=== PATIENT | male | born 1975 | race Caucasian/White ===

== ENCOUNTER 2017-03-18 18:00 | Inpatient (IN) | payer OTHER ==
--- NOTE | ~2017-03-18 | PA ---
Unit #: [id number] #: [id number] Patient: ANIA GRIGSBY [id number] [facility] [address] [place] [address] [id number] I MR#: [id number] NAME: ANIA GRIGSBY. ROOM: P174 Age: 42 Sex: M Admission Date: 03/18/2017 : 1975 Date of Assessment: 03/18/2017 Attending Physician: Sharri Sotelo M.D. Admitting Physician: Sharri Sotelo M.D. Primary Care Physician: Arina Jaramillo PSYCHIATRIC ASSESSMENT DATE OF SERVICE 03/19/2017. IDENTIFYING DATA Mr. Grigsby is a 42-year-old, , white male, who is a resident of [place], [place] and is known to us from previous encounter, was self-referred to the hospital on a voluntary basis with a blood alcohol level of 0.12. CHIEF COMPLAINT "I started drinking 3 weeks ago." HISTORY OF PRESENT ILLNESS Mr. Grigsby is a 42-year-old white male with a history of alcohol dependence, who self referred himself to the hospital stating that he was seen here previously in November and got out after 6 days and everything was going good and "I spent 2 months being sober and life happened and things stressed me out and I started drinking again 3 weeks ago. I knew it was going to get out of control and escalate. I think current living situation is temporary with my aunt and I'm waiting for a settlement from my divorce and is tied up, it may not be for 1 to 2 more months, I'm ready to get on with my life and it is not going to be the way I thought it was, the divorce in general. We were for 10 years and just that lifestyle I enjoyed has gone. I don't feel like I've anybody to help me out. Most of my family is ." He does report increasing depression, anxiety, irritability, restlessness, feelings of hopelessness and helplessness, and suicidal ideation and reports that he has a gun, but it is with his friend and that he does not have an access to gun currently and states the friend will not give it back to him. He reports that he was previously admitted to [facility] with suicidal ideations with a plan to jump from a bridge and reports that he was in his 20s and he self harmed, but has not done that for a year. SUBSTANCE ABUSE HISTORY The patient reports history of experimentation with alcohol, cannabis, cocaine, acid, opioids, amphetamines, and currently alcohol has been his drug of choice and reports that he has been drinking since he was 14 years old. PAST PSYCHIATRIC HISTORY The patient has had a history of multiple inpatient psychiatric and chemical dependency treatments including being at [facility] and at [facility], and review of the Unit #: [id number] #: [id number] Patient: ANIA GRIGSBY medical records indicate that he is currently on BuSpar, Lexapro and Seroquel. PAST MEDICAL HISTORY The patient's medical history is insignificant. ALLERGIES No known medication allergies. PERSONAL AND SOCIAL HISTORY A 42-year-old white male, who reports that he is and single and lives with his uncle and aunt and has poor social support system. MENTAL STATUS EXAMINATION Middle-aged white male, who was casually dressed with fair personal hygiene, appears to be in no acute distress or discomfort. He was awake and alert on interaction with intact orientation to time, place, and person. His mood was anxious and depressed with a congruent affect. His speech was slow and restricted in content. His thought processes were disorganized with some looseness of associations. He denies any suicidal or homicidal ideations and also denies any auditory or visual hallucinations. His insight and judgment remain significantly impaired. DIAGNOSTIC IMPRESSION Psychiatric: Major depressive disorder, recurrent, moderate, without psychotic features; alcohol dependence, moderate and acute withdrawals. Medical: None. Stressors: Moderate psychosocial stressors. TREATMENT PLAN 1. The patient has presented with a history of mood disorder and substance abuse and dependence and has been decompensating and will need inpatient hospitalization for detoxification, safety, and stabilization. We will start him back on his home medications. We will adjust the medications and monitor response. 2. Supportive therapy was provided to the patient. 3. Safe, structured, and nourishing environment will be provided. ESTIMATED LENGTH OF STAY 4 to 5 days. ABILITY TO HELP SELF Limited. WILLINGNESS TO HELP SELF The patient appears to be willing to help self. STRENGTHS 1. Communicative. 2. Cooperative. PROBLEMS 1. Chronic dysphoric symptoms. 2. Chronic chemical dependency. 3. Poor social support system. Unit #: [id number] #: [id number] Patient: ANIA GRIGSBY DISCHARGE CRITERIA This will be contingent upon the patient's ability to go through detox without having any significant withdrawal symptoms as well as his ability to stay safe to himself, particularly after discharge from the hospital. Dictated by... Kayla Denney/bryn TD: 03/19/2017 07:13 JOB #: [id number] PSYCHIATRIC ASSESSMENT Page 1 of 1 X Sharri Sotelo MD X PSYCHIATRIC ASSESSMENT
--- NOTE | ~2017-03-18 | PN ---
Unit #: [id number] #: [id number] Patient: ANIA GRIGSBY [id number] [facility] [address] [place] [address] [id number] I MR#: [id number] NAME: ANIA GRIGSBY. ROOM: P174 Age: 42 Sex: M Admission Date: 03/18/2017 : 1975 Attending Physician: Sharri Sotelo M.D. Admitting Physician: hSarri Sotelo M.D. Primary Care Physician: Arina ENNIS PROGRESS NOTES DATE 03/23/2017 DISCUSSION Mr. Grigsby is a 42-year-old, white male who was seen today and chart was reviewed and case was discussed with the staff. He has been anxious, withdrawn and rather seclusive to himself. Meanwhile, he has been compliant with the treatment recommendations. He has been taking medications and tolerating them fairly well. MENTAL STATUS EXAM Middle-aged white male who was casually dressed with fair personal hygiene, appears to be in no acute distress or discomfort. He was awake and alert with intact orientation. His mood was anxious with congruent affect. He denies any suicidal or homicidal ideation. His insight and judgement remains slightly impaired. TREATMENT PLAN 1. We will continue him on his current medications and treatment protocol. We will monitor his response and make further adjustments as needed. 2. We will continue to follow up. Dictated by... Kayla Dneney/josselyn TD: 03/25/2017 05:08 JOB #: [id number] Unit #: [id number] #: [id number] Patient: ANIA GRIGSBY PROGRESS NOTES Page 1 of 1 X Sharri Sotelo MD X PROGRESS NOTE
--- NOTE | ~2017-03-18 | DS ---
Unit #: [id number] #: [id number] Patient: ANIA GRIGSBY [id number] [facility] [address] [place] [address] [id number] MR#: [id number] NAME: ANIA GRIGSBY. ROOM: P174 Age: 42 Sex: M Admission Date: 03/18/2017 : 1975 Discharge Date: 03/24/2017 Attending Physician: Sharri Sotelo M.D. Primary Care Physician: Arina Jaramillo DISCHARGE SUMMARY IDENTIFYING DATA Mr. Grigsby is a 42-year-old white male, who is a resident of [place], [place], and was self-referred to the hospital on a voluntary basis with a blood alcohol level of 0.12. DISCHARGE DIAGNOSES Psychiatric: Major depressive disorder, recurrent, moderate, without psychotic features; alcohol dependence, moderate. Medical: None. Stressors: Moderate psychosocial stressors. HISTORY OF PRESENT ILLNESS Please see initial psychiatric evaluation for details. PAST PSYCHIATRIC HISTORY Please see initial psychiatric evaluation for details. PAST MEDICAL HISTORY Please see initial psychiatric evaluation for details. HOSPITAL COURSE The patient was admitted to the adult chemical dependency and psychiatric unit at [facility] and was oriented to the hospital environment. Routine p.r.n. medications were initiated, and he was started back on his home medications and alcohol detox protocol was initiated and he was closely monitored. He was taking medications regularly and was tolerating them fairly well and he was seen to be polite and pleasant and cooperative with treatment recommendation. No agitation, aggression, or inappropriate behavior was noticed and he was able to complete the detox program without any complications and was willing to continue treatment on an outpatient basis and as such, it was decided that he will be discharged home and will continue treatment on an outpatient basis. DISCHARGE MEDICATIONS Lexapro 20 mg a day for depression, BuSpar 10 mg t.i.d. for anxiety, Lamictal 100 mg in the morning for bipolar, and Seroquel 25 mg at bedtime for bipolar. DISCHARGE CONDITION Stable. PROGNOSIS Fair. Unit #: [id number] #: [id number] Patient: ANIA GRIGSBY Dictated by... Sharri Sotelo M.D. IAA/modl TD: 03/25/2017 01:53 JOB #: [id number] DISCHARGE SUMMARY Page 1 of 1 X Sharri Sotelo MD DISCHARGE SUMMARY
--- NOTE | ~2017-03-18 | PN ---
Unit #: [id number] #: [id number] Patient: ANIA GRIGSBY [id number] [facility] [address] [place] [address] [id number] I MR#: [id number] NAME: ANIA GRIGSBY. ROOM: P174 Age: 42 Sex: M Admission Date: 03/18/2017 : 1975 Attending Physician: Sharri Sotelo M.D. Admitting Physician: Sharri Sotelo M.D. Primary Care Physician: Arina ENNIS PROGRESS NOTES DATE 03/21/2017 DISCUSSION Mr. Grigsby is a 42-year-old white male who was seen today and chart was reviewed and case was discussed with the staff. He has been anxious, withdrawn and seclusive to himself. Meanwhile, he has been cooperative with treatment recommendations and has been taking the medications and tolerating them fairly well with no reported side effects. MENTAL STATUS EXAMINATION Middle-aged white male who was casually dressed with fair personal hygiene and appears to be in no acute distress or discomfort. He was awake and alert on interaction with intact orientation. His mood was anxious with congruent affect. He denies any suicidal or homicidal ideation. His insight and judgement remains slightly impaired. TREATMENT PLAN 1. Will continue on his current medications and treatment protocol. Will monitor his response to the medications and make further adjustments as needed. 2. Will continue to follow up. Dictated by... Kayla Denney/ayala TD: 03/22/2017 22:07 JOB #: [id number] Unit #: [id number] #: [id number] Patient: ANIA GRIGSBY PROGRESS NOTES Page 1 of 1 X Sharri Sotelo MD X PROGRESS NOTE
--- NOTE | ~2017-03-18 | HP ---
Unit #: [id number] #: [id number] Patient: JOSÉ GRIGSBY [id number] [place] [address] [id number] I MR#: [id number] NAME: JOSÉ GRIGSBY. ROOM: P174 Age: 42 Sex: M Admission Date: 03/18/2017 : 1975 Attending Physician: Sharri Sotelo M.D. Admitting Physician: Sharri Sotelo M.D. Primary Care Physician: Arina Jaramillo HISTORY AND PHYSICAL HISTORY OF PRESENT ILLNESS José is a 42 year old admitted to [facility] because of his continued abuse of alcohol. PAST MEDICAL HISTORY Long history of alcohol abuse PAST SURGICAL HISTORY Nothing reported. ALLERGIES No known drug allergies. SOCIAL HISTORY Smokes one pack per day. Drinks at least 12 beers on a daily basis. Has a history of marijuana use. FAMILY HISTORY Medically noncontributory. REVIEW OF SYSTEMS CONSTITUTIONAL: No fever or chills. HEENT: Denies any sore throat, ear pain or runny nose. CARDIOVASCULAR: Denies chest pain, irregular heart rhythm or palpitations. CHEST: Denies shortness of breath or cough. No hemoptysis. GASTROINTESTINAL: Denies nausea, vomiting, diarrhea or chronic constipation. ENDOCRINE: Denies history of increased thirst or urination. No recent significant weight loss or gain. GENITOURINARY: Denies dysuria, frequency, or hematuria. SKIN: Denies any rashes. HEMATOLOGIC: Denies history of increased bleeding or bruising. MUSCULOSKELETAL: Denies any hot, swollen joints. No generalized muscle pain. NEUROLOGIC: Denies problems with vision or speech. No frequent, severe headaches. No numbness, tingling or weakness in any extremities. Denies loss of bladder or bowel control. CURRENT MEDICATIONS 1. Detox protocol 2. Seroquel 25 mg q.h.s. 3. Lexapro 20 mg q day 4. BuSpar 10 mg t.i.d. Unit #: [id number] #: [id number] Patient: JOSÉ GRIGSBY PHYSICAL EXAMINATION GENERAL: Alert, well-nourished, in no apparent distress. VITAL SIGNS: Blood pressure 100/66, heart rate 80, respirations 16, temperature 98.6. WEIGHT: 175 pounds. HEIGHT: 5'9". SKIN: Warm and dry without rash or lesion. HEENT: Normocephalic. TMs not viewed. Oral and nasal passages clear. Conjunctivae clear. Pupils equal, round and reactive to light and accommodation. Extraocular movements intact. NECK: Supple without lymphadenopathy or thyromegaly. HEART: Regular rate and rhythm without murmur. LUNGS: Clear. ABDOMEN: Soft, nontender. : Not done. EXTREMITIES: No evidence of cyanosis, clubbing or edema. Moves all extremities without focal deficit. NEUROLOGICAL: Grossly within normal limits. Cranial Nerves: II: Visual whitney are intact. III, IV AND : Extraocular movements are intact. Pupils are equal, round and reactive to light. V: Facial sensation is grossly normal. VII: Facial movements and expression are normal. VIII: Auditory acuity grossly intact. IX, X: Uvula is midline. Phonation is normal. XI: Patient shrugs shoulders and turns head normally. XII: Tongue protrudes in the midline. Sensory and Motor Function: Sensory and motor sensation is grossly normal. Motor: moves all extremities well. Coordination: Gait is normal. Deep Tendon Reflexes: Intact. IMPRESSION Psychiatric admission RECOMMENDATIONS PSYCHIATRIC: Per psychiatrist. MEDICAL: I see no contraindications to participating in facility's activities. MEDICAL PROGNOSIS Good. MEDICAL CONDITION Stable. Dictated by... Trina Amanda P.A.-C. for Kayla Chaney/josselyn TD: 03/20/2017 02:11 JOB #: [id number] Unit #: [id number] #: [id number] Patient: JOSÉ GRIGSBY HISTORY AND PHYSICAL Page 1 of 1 X Trina Amanda HISTORY AND PHYSICAL
--- NOTE | ~2017-03-18 | PN ---
Unit #: [id number] #: [id number] Patient: ANIA GRIGSBY [id number] [facility] [address] [place] [address] [id number] I MR#: [id number] NAME: ANIA GRIGSBY. ROOM: P174 Age: 42 Sex: M Admission Date: 03/18/2017 : 1975 Attending Physician: Sharri Sotelo M.D. Admitting Physician: Sharri Sotelo M.D. Primary Care Physician: Arina ENNIS PROGRESS NOTES DATE OF SERVICE: 03/22/2017 SUBJECTIVE Mr. Grigsby is a 42-year-old, white male, who was seen today and chart was reviewed, and case was discussed with the staff. The patient has been anxious, withdrawn and seclusive to himself. Meanwhile, he has been cooperative with treatment recommendation, and has been taking the medications and tolerating them fairly well with no reported side effects. MENTAL STATUS EXAMINATION Middle-aged white male, who was casually dressed with fair personal hygiene, appears to be in no acute distress or discomfort. He was awake and alert on interaction with intact orientation. His mood was anxious with a congruent affect. He denies any suicidal or homicidal ideations. His insight and judgment remain slightly impaired. TREATMENT PLAN 1. We will continue him on his current medications and treatment protocol. We will monitor his response and make further adjustments as needed. 2. We will continue to follow up. Dictated by... Kayla Denney/bryn TD: 03/24/2017 07:03 JOB #: [id number] [facility] PROGRESS NOTES Page 1 of 1 X Sharri Sotelo MD PROGRESS NOTE
--- NOTE | ~2017-03-18 | PN ---
Unit #: [id number] #: [id number] Patient: ANIA GRIGSBY [id number] [facility] [address] [place] [address] [id number] I MR#: [id number] NAME: ANIA GRIGSBY. ROOM: P174 Age: 42 Sex: M Admission Date: 03/18/2017 : 1975 Attending Physician: Sharri Sotelo M.D. Admitting Physician: Sharri Sotelo M.D. Primary Care Physician: Arina ENNIS PROGRESS NOTES DATE March 20, 2017 DISCUSSION Mr. Grigsby is a 42-year-old white male, who was seen today and chart was reviewed and the case was discussed with the staff. He has been anxious, withdrawn, and rather seclusive to himself. Meanwhile, he has been cooperative with the treatment recommendations and he has been taking the medications and tolerating them fairly well with no reported side effects. MENTAL STATUS EXAMINATION Middle-aged white male, who was casually dressed with fair personal hygiene and appears to be in some distress and discomfort. He was awake and alert on interaction with intact orientation. His mood was anxious with a congruent affect but denies any suicidal or homicidal ideations, and also denies any auditory or visual hallucinations. His insight and judgment remain slightly impaired. TREATMENT PLAN 1. We will continue him on his current medications and treatment protocol, and will monitor his response to the medications, and make further adjustments as needed. 2. We will continue to followup. Dictated by... Kayla Denney/ingrid TD: 03/21/2017 05:45 JOB #: [id number] Unit #: [id number] #: [id number] Patient: ANIA GRIGSBY PROGRESS NOTES Page 1 of 1 X Sharri Sotelo MD PROGRESS NOTE
[2017-03-19 09:51] LABS: BASOPHIL% 0.8 % (0-2.5); EOSINOPHIL# 0.2 X10e3 (0-0.7); EOSINOPHIL% 3.6 % (0.0-7.0); HEMATOCRIT 43.2 % (38.0-50.0); HEMOGLOBIN 14.5 gm/dL (13.0-16.0); LYMPHOCYTE# 2.4 X10e3 (1.0-3.5); LYMPHOCYTE% 48.7 % (17.0-45.0); MEAN CELL VOLUME 89.9 FL (83-96); MEAN CORPUSCULAR HEMOGLOBIN 30.2 PG (28-34); MEAN CORPUSCULAR HGB CONC 33.6 g/dL (30-36); MEAN PLATELET VOLUME 9.2 FL (6.5-11.5); MONOCYTE# 0.4 X10e3 (0-1.0); NEUTROPHIL# 1.9 X10e3 (1.5-7.1); NEUTROPHIL% 37.9 % (40-75); PLATELET COUNT 183 X10e3 (140-420); RED BLOOD COUNT 4.81 X10e (3.90-5.60); WHITE BLOOD COUNT 4.9 X10e3 (4.0-10.5)
[2017-03-19 09:59] LABS: DIFF IND NO
[2017-03-19 10:00] LABS: URINE APPEARANCE TURBID; URINE BILIRUBIN NEG (NEG); URINE BLOOD NEG (NEG); URINE COLOR YELLOW; URINE GLUCOSE NEG (NEG); URINE KETONE TRACE (NEG); URINE LEUKOCYTE ESTERASE NEG (NEG); URINE NITRATE NEG (NEG); URINE PROTEIN NEG (NEG); URINE SPECIFIC GRAVITY 1.018 (1.003-1.035); URINE UROBILINOGEN 0.2 MG/DL (NEG)
[2017-03-19 10:07] LABS: ALBUMIN SERUM 4.3 g/dL (3.5-5.0); BILIRUBIN,TOTAL 0.5 mg/dL (0.2-2.0); CALCIUM SERUM 9.2 mg/dL (8.4-10.2); GLOM FILT RATE Estimated 91.8 mL/min (>60); POTASSIUM 4.4 mmol/L (3.5-5.1); PROTEIN TOTAL SERUM 6.7 g/dL (6.0-8.3)
[2017-03-19 11:48] LABS: AMPHETAMINE NEG (NEG); BARBITURATES NEG (NEG); BENZODIAZEPINES POS (NEG); COCAINE NEG (NEG); MARIJUANA NEG (NEG); OPIATES NEG (NEG); TRICYCLIC ANTIDEPRESSANTS NEG (NEG); U METHADONE NEG (NEG)
== END 2017-03-24 12:50 | disposition home or self-care (01) | DRG 885 ==
LOC: P1E 22:46
PROVIDERS: Psychiatry & Neurology Psychiatry
PROC: HZ2ZZZZ Detoxification Services for Substance Abuse Treatment (ICD-10-PCS; principal; 2017-03-18)
DX: F33.1 Major depressive disorder, recurrent, moderate (principal); F10.239 Alcohol dependence with withdrawal, unspecified; F17.210 Nicotine dependence, cigarettes, uncomplicated
CPT/HCPCS: 80053; 80307; 81003; 85025; 86592

== ENCOUNTER 2017-04-23 18:28 | Inpatient (IN) | payer OTHER ==
--- NOTE | ~2017-04-23 | PA ---
Unit #: [id number] #: [id number] Patient: [facility] GRIGSBY [id number] [facility] [address] [place] [address] [id number] I MR#: [id number] NAME: ANIA GRIGSBY. ROOM: P173 Age: 42 Sex: M Admission Date: 04/23/2017 : 1975 Date of Assessment: 04/24/2017 Attending Physician: Sharri Sotelo M.D. Admitting Physician: Sharri Sotelo M.D. Primary Care Physician: Arina Jaramillo PSYCHIATRIC ASSESSMENT DATE OF SERVICE 04/24/2017. IDENTIFYING DATA Mr. Grigsby is a 42-year-old, , white male, who is a resident of [place], [place], and was self-referred to the hospital on a voluntary basis and had a blood alcohol level of 0.079 and CIWA score of 18 indicating significant withdrawal symptoms. CHIEF COMPLAINT "I really want to quit drinking." HISTORY OF PRESENT ILLNESS Mr. Grigsby is a 42-year-old white male with a history of alcohol dependence, was self-referred to the hospital and stated that he has not been taking his medications and his treatment seriously in the past, but that he really wants to quit drinking and his amount of alcohol consumption has increased over the period of few weeks and does report significant consequences because of his addiction and has not been able to function and reports and conflict with family and friends and I feel guilty and shame and does not want to contact friends and reports having no one as a support system and has attended a few meetings in the past and does not currently have a sponsor. He does report increasing depression with poor energy level, psychomotor retardation, feelings of hopelessness and helplessness, and reports suicidal ideations and as such, recommendation for inpatient level of care for safety and stabilization was made and the patient was transferred to us. SUBSTANCE ABUSE HISTORY The patient reports history of alcohol and cannabis abuse and alcohol has been his drug of choice and reports that he has been drinking 12 beers or more on daily basis. PAST PSYCHIATRIC HISTORY The patient has had history of inpatient psychiatric hospitalization at [facility] in addition to outpatient treatment. Review of the medical records indicate that currently he is supposed to be on Lexapro, BuSpar, Lamictal, and Seroquel, though it is not clear if he has been compliant with medications. PAST MEDICAL HISTORY No acute or chronic medical illnesses. Unit #: [id number] #: [id number] Patient: ANIA GRIGSBY ALLERGIES No known medication allergies. PERSONAL AND SOCIAL HISTORY A 42-year-old white male, who reports that he is single, unemployed, and lives at home with his aunt and uncle and has poor social support system. MENTAL STATUS EXAMINATION Middle-aged white male, who was casually dressed with fair personal hygiene, appears to be in no acute distress or discomfort. He was awake and alert on interaction with intact orientation. His mood was anxious and depressed with a congruent affect. His speech was slow and restricted in content. His thought processes were disorganized with some looseness of associations and flight of ideas and suicidal ideations. His insight and judgment remain significantly impaired. DIAGNOSTIC IMPRESSION Psychiatric: Alcohol dependence, moderate and acute withdrawals; bipolar disorder, most recent episode depressed, recurrent, moderate, without psychotic features. Medical: None. Stressors: Moderate psychosocial stressors. TREATMENT PLAN 1. The patient has presented with a history of mood disorder and substance abuse and has been decompensating and will need inpatient hospitalization for safety and stabilization. We will start him back on home medications and we will adjust the medications and monitor. 2. Supportive therapy was provided to the patient. ESTIMATED LENGTH OF STAY 5 to 7 days. ABILITY TO HELP SELF Limited. WILLINGNESS TO HELP SELF The patient appears to be willing to help self. STRENGTHS 1. Communicative. 2. Cooperative. PROBLEMS 1. Chronic dysphoric symptoms. 2. Poor social support system. DISCHARGE CRITERIA This will be contingent upon the patient's ability to show resolution of his depression and anxiety and his ability to stay safe to himself, particularly after discharge from the hospital. Dictated by... Sharri Sotelo M.D. Unit #: [id number] #: [id number] Patient: ANIA GRIGSBY IAA/modl TD: 04/24/2017 07:48 JOB #: [id number] PSYCHIATRIC ASSESSMENT Page 1 of 1 X AshleighSharri Chan MD X PSYCHIATRIC ASSESSMENT
--- NOTE | ~2017-04-23 | PN ---
Unit #: [id number] #: [id number] Patient: ANIA GRIGSBY [id number] [facility] [address] [place] [address] [id number] I MR#: [id number] NAME: ANIA GRIGSBY. ROOM: P173 Age: 42 Sex: M Admission Date: 04/23/2017 : 1975 Attending Physician: Sharri Sotelo M.D. Admitting Physician: Sharri Sotelo M.D. Primary Care Physician: Arina ENNIS PROGRESS NOTES DATE April 26, 2017 DISCUSSION Mr. Grigsby is a 42-year-old white male, with substance abuse and mood disorder, who was seen today and chart was reviewed and the case was discussed with the staff. He has been anxious, withdrawn, and rather seclusive to himself. Meanwhile, he has been cooperative with the treatment recommendations and he has been taking the medications and tolerating them fairly well with no reported side effects. MENTAL STATUS EXAMINATION Middle-aged white male, who was casually dressed with fair personal hygiene and appears to be in no acute distress or discomfort. He was awake and alert on interaction with intact orientation. His mood is anxious with a congruent affect. He denies any suicidal or homicidal ideations. His insight and judgment remain slightly impaired. TREATMENT PLAN 1. We will continue him on his current medications and treatment protocol, and will monitor his response to the medications, and make further adjustments as needed. 2. We will continue to followup. Dictated by... Kayla Denney/ingrid TD: 04/28/2017 06:48 JOB #: [id number] Unit #: [id number] #: [id number] Patient: ANIA GRIGSBY PROGRESS NOTES Page 1 of 1 X Sharri Sotelo MD PROGRESS NOTE
--- NOTE | ~2017-04-23 | HP ---
Unit #: [id number] #: [id number] Patient: JOSÉ GRIGSBY [id number] [place] [address] [id number] MR#: [id number] NAME: JOSÉ GRIGSBY. ROOM: P173 Age: 42 Sex: M Admission Date: 04/23/2017 : 1975 Attending Physician: Sharri Sotelo M.D. Admitting Physician: Sharri Sotelo M.D. Primary Care Physician: Arina Jaramillo HISTORY AND PHYSICAL HISTORY OF PRESENT ILLNESS José is a 42 year old admitted to [facility] because of his continued abuse of alcohol. PAST MEDICAL HISTORY Long history of alcohol abuse. PAST SURGICAL HISTORY Nothing reported. ALLERGIES No known drug allergies. SOCIAL HISTORY Smokes one pack per day. Drinks at least 12 beers on a daily basis. Has a history of marijuana use. FAMILY HISTORY Medically noncontributory. REVIEW OF SYSTEMS CONSTITUTIONAL: No fever or chills. HEENT: Denies any sore throat, ear pain or runny nose. CARDIOVASCULAR: Denies chest pain, irregular heart rhythm or palpitations. CHEST: Denies shortness of breath or cough. No hemoptysis. GASTROINTESTINAL: Denies nausea, vomiting, diarrhea or chronic constipation. ENDOCRINE: Denies history of increased thirst or urination. No recent significant weight loss or gain. GENITOURINARY: Denies dysuria, frequency, or hematuria. SKIN: Denies any rashes. HEMATOLOGIC: Denies history of increased bleeding or bruising. MUSCULOSKELETAL: Denies any hot, swollen joints. No generalized muscle pain. NEUROLOGIC: Denies problems with vision or speech. No frequent, severe headaches. No numbness, tingling or weakness in any extremities. Denies loss of bladder or bowel control. CURRENT MEDICATIONS 1. Detox protocol 2. BuSpar 15 mg t.i.d. 3. Lamictal 100 mg q day Unit #: [id number] #: [id number] Patient: JOSÉ GRIGSBY 4. Lexapro 20 mg q day PHYSICAL EXAMINATION GENERAL: Alert, well-nourished, in no apparent distress. VITAL SIGNS: Blood pressure 122/76, heart rate 80, respirations 16, temperature 98.6. WEIGHT: 175 pounds. HEIGHT: 5'9". SKIN: Warm and dry without rash or lesion. HEENT: Normocephalic. TMs not viewed. Oral and nasal passages clear. Conjunctivae clear. Pupils equal, round and reactive to light and accommodation. Extraocular movements intact. NECK: Supple without lymphadenopathy or thyromegaly. HEART: Regular rate and rhythm without murmur. LUNGS: Clear. ABDOMEN: Soft, nontender. : Not done. EXTREMITIES: No evidence of cyanosis, clubbing or edema. Moves all extremities without focal deficit. NEUROLOGICAL: Grossly within normal limits. Cranial Nerves: II: Visual whitney are intact. III, IV AND : Extraocular movements are intact. Pupils are equal, round and reactive to light. V: Facial sensation is grossly normal. VII: Facial movements and expression are normal. VIII: Auditory acuity grossly intact. IX, X: Uvula is midline. Phonation is normal. XI: Patient shrugs shoulders and turns head normally. XII: Tongue protrudes in the midline. Sensory and Motor Function: Sensory and motor sensation is grossly normal. Motor: moves all extremities well. Coordination: Gait is normal. Deep Tendon Reflexes: Intact. IMPRESSION Psychiatric admission RECOMMENDATIONS PSYCHIATRIC: Per psychiatrist. MEDICAL: I see no contraindications to participating in facility's activities. MEDICAL PROGNOSIS Good. MEDICAL CONDITION Stable. Dictated by... Dawit BecerrilAAnjelica-Radha. for Kayla Chaney/josselyn TD: 04/24/2017 21:06 JOB #: [id number] Unit #: [id number] #: [id number] Patient: JOSÉ GRIGSBY HISTORY AND PHYSICAL Page 1 of 1 X Trina Amanda HISTORY AND PHYSICAL
--- NOTE | ~2017-04-23 | PN ---
Unit #: [id number] #: [id number] Patient: ANIA GRIGSBY [id number] [facility] [address] [place] [address] [id number] I MR#: [id number] NAME: ANIA GRIGSBY. ROOM: P173 Age: 42 Sex: M Admission Date: 04/23/2017 : 1975 Attending Physician: Sharri Sotelo M.D. Admitting Physician: Sharri Sotelo M.D. Primary Care Physician: Arina ENNIS PROGRESS NOTES DATE 04/25/2017 DISCUSSION Mr. Grigsby is a 42-year-old, white male who was seen today and chart was reviewed and case was discussed with the staff. He has been anxious, withdrawn and rather seclusive to himself. Meanwhile, he has been cooperative with treatment recommendations. He has been taking medications and tolerating them fairly well with no reported side effects. MENTAL STATUS EXAM Young white male who was casually dressed with fair personal hygiene, appears to be in slight distress and discomfort. He was awake and alert on interaction with intact orientation. His mood was anxious with congruent affect. He denies any suicidal or homicidal ideation. Also, denies any auditory or visual hallucinations. His insight and judgement remains slightly impaired. TREATMENT PLAN 1. We will continue him on his current medications and treatment protocol. We will monitor his response to the medication and make further adjustments as needed. 2. We will continue to follow up. Dictated by... Kayla Denney/josselyn TD: 04/28/2017 01:38 JOB #: [id number] Unit #: [id number] #: [id number] Patient: ANIA GRIGSBY PROGRESS NOTES Page 1 of 1 X Sharri Sotelo MD X PROGRESS NOTE
--- NOTE | ~2017-04-23 | PN ---
Unit #: [id number] #: [id number] Patient: ANIA GRIGSBY [id number] [facility] [address] [place] [address] [id number] I MR#: [id number] NAME: ANIA GRIGSBY. ROOM: P173 Age: 42 Sex: M Admission Date: 04/23/2017 : 1975 Attending Physician: Sharri Sotelo M.D. Admitting Physician: Sharri Sotelo M.D. Primary Care Physician: Arina ENNIS PROGRESS NOTES DATE 04/27/2017 DISCUSSION Mr. Grigsby is a 27-year-old, white male who was seen today and chart was reviewed and case was discussed with the staff. He has been doing somewhat fairly better and appears to be coming out of the detox without any complications. He has been taking the medication and tolerating them fairly well with no reported side effects. MENTAL STATUS EXAM Young white male who was casually dressed with fair personal hygiene, appears to be in no acute distress or discomfort. He was awake and alert on interaction with intact orientation. His mood was anxious with congruent affect. He denies any suicidal or homicidal ideation. His insight and judgement remains slightly impaired. TREATMENT PLAN 1. We will continue him on his current medications and treatment protocol. We will monitor his response to the medication and make further adjustments as needed. 2. We will continue to follow up. Dictated by... Kayla Denney/josselyn TD: 04/29/2017 23:55 JOB #: [id number] Unit #: [id number] #: [id number] Patient: ANIA GRIGSBY PROGRESS NOTES Page 1 of 1 X Sharri Sotelo MD X PROGRESS NOTE
--- NOTE | ~2017-04-23 | DS ---
Unit #: [id number] #: [id number] [facility] [id number] [facility] [address] [place] [address] [id number] I MR#: [id number] NAME: ANIA GRIGSBY. ROOM: P173 Age: 42 Sex: M Admission Date: 04/23/2017 : 1975 Discharge Date: 04/28/2017 Attending Physician: Sharri Sotelo M.D. Primary Care Physician: Arina Jaramillo DISCHARGE SUMMARY IDENTIFYING DATA Mr. Grigsby is a 42-year-old white male, who is a resident of [place], [place], and was self-referred to the hospital on a voluntary basis and had a blood alcohol level of 0.079 and CIWA score of 18 indicating significant withdrawal symptoms. CHIEF COMPLAINT "I really want to quit drinking." DISCHARGE DIAGNOSES Psychiatric: Alcohol dependence, moderate and acute withdrawals; bipolar disorder, most recent episode depressed, recurrent, moderate, without psychotic features. Medical: None. Stressors: Moderate psychosocial stressors. HISTORY OF PRESENT ILLNESS Please see initial psychiatric evaluation for details. PAST PSYCHIATRIC HISTORY Please see initial psychiatric evaluation for details. PAST MEDICAL HISTORY Please see initial psychiatric evaluation for details. HOSPITAL COURSE The patient was admitted to the adult psychiatric and chemical dependency unit at [facility] and was oriented to the hospital environment. Routine p.r.n. medications were initiated, and he was started back on his bipolar medications including Lamictal, Seroquel, and Lexapro and alcohol detox protocol was initiated and was closely monitored. He was taking the medications regularly and was tolerating them fairly well and was able to show a decent therapeutic response with improvement in depression and anxiety and as such, it was decided that he will be discharged home and will continue treatment on an outpatient basis. DISCHARGE MEDICATIONS Lexapro 20 mg a day for depression, Lamictal 100 mg a day for bipolar, Seroquel 25 mg at bedtime for bipolar, and BuSpar 15 mg t.i.d. for anxiety. DISCHARGE CONDITION Stable. PROGNOSIS Unit #: [id number] #: [id number] Patient: ANIA GRIGSBY Fair. Dictated by... Sharri Sotelo M.D. IAA/modl TD: 04/28/2017 06:41 JOB #: [id number] DISCHARGE SUMMARY Page 1 of 1 X Sharri Sotelo MD DISCHARGE SUMMARY
[2017-04-24 09:36] LABS: BASOPHIL% 0.6 % (0-2.5); EOSINOPHIL# 0.3 X10e3 (0-0.7); EOSINOPHIL% 4.8 % (0.0-7.0); HEMATOCRIT 43.2 % (38.0-50.0); HEMOGLOBIN 14.4 gm/dL (13.0-16.0); LYMPHOCYTE# 2.6 X10e3 (1.0-3.5); LYMPHOCYTE% 49.8 % (17.0-45.0); MEAN CELL VOLUME 92.4 FL (83-96); MEAN CORPUSCULAR HEMOGLOBIN 30.8 PG (28-34); MEAN CORPUSCULAR HGB CONC 33.4 g/dL (30-36); MEAN PLATELET VOLUME 9.2 FL (6.5-11.5); MONOCYTE# 0.5 X10e3 (0-1.0); MONOCYTE% 8.6 % (3.0-12.0); NEUTROPHIL# 1.9 X10e3 (1.5-7.1); NEUTROPHIL% 36.2 % (40-75); PLATELET COUNT 174 X10e3 (140-420); RED BLOOD COUNT 4.67 X10e (3.90-5.60); RED CELL DISTRIBUTION WIDTH 14.1 % (11.0-15.5); WHITE BLOOD COUNT 5.3 X10e3 (4.0-10.5)
[2017-04-24 10:04] LABS: DIFF IND NO
[2017-04-24 10:13] LABS: BILIRUBIN,TOTAL 0.7 mg/dL (0.2-2.0); BUN/CREATININE RATIO 16.25; CALCIUM SERUM 8.9 mg/dL (8.4-10.2); CREATININE SERUM 0.8 mg/dL (0.6-1.4); GLOM FILT RATE Estimated 109.5 mL/min (>60); POTASSIUM 4.1 mmol/L (3.5-5.1); PROTEIN TOTAL SERUM 6.4 g/dL (6.0-8.3)
[2017-04-24 10:21] LABS: URINE APPEARANCE CLEAR; URINE BILIRUBIN NEG (NEG); URINE BLOOD NEG (NEG); URINE COLOR YELLOW; URINE GLUCOSE NEG (NEG); URINE KETONE TRACE (NEG); URINE LEUKOCYTE ESTERASE NEG (NEG); URINE NITRATE NEG (NEG); URINE PROTEIN NEG (NEG); URINE SPECIFIC GRAVITY 1.018 (1.003-1.035); URINE UROBILINOGEN 0.2 MG/DL (NEG)
[2017-04-24 10:46] LABS: AMPHETAMINE NEG (NEG); BARBITURATES NEG (NEG); BENZODIAZEPINES POS (NEG); COCAINE NEG (NEG); MARIJUANA POS (NEG); OPIATES NEG (NEG); TRICYCLIC ANTIDEPRESSANTS NEG (NEG); U METHADONE NEG (NEG)
== END 2017-04-28 11:15 | DRG 897 ==
LOC: P1E 22:56
PROVIDERS: Psychiatry & Neurology Psychiatry
PROC: HZ2ZZZZ Detoxification Services for Substance Abuse Treatment (ICD-10-PCS; principal; 2017-04-23)
DX: F10.239 Alcohol dependence with withdrawal, unspecified (principal); F31.32 Bipolar disorder, current episode depressed, moderate; F17.210 Nicotine dependence, cigarettes, uncomplicated; F41.9 Anxiety disorder, unspecified
CPT/HCPCS: 80053; 80307; 81003; 85025; 86592

== ENCOUNTER 2017-05-01 13:00 | Inpatient (IN) | payer OTHER ==
--- NOTE | ~2017-05-01 | DS ---
Unit #: [id number] #: [id number] Patient: [facility]BY [id number] [facility] [place] [address] [id number] I MR#: [id number] NAME: ANIA GRIGSBY. ROOM: P178 Age: 42 Sex: M Admission Date: 05/01/2017 : 1975 Discharge Date: 05/06/2017 Attending Physician: Sharri Sotelo M.D. Primary Care Physician: Arina Jaramillo DISCHARGE SUMMARY IDENTIFYING DATA Mr. Grigsby is a 42-year-old white male, who is a resident of [place], [place] and was self-referred to the hospital. HISTORY OF PRESENT ILLNESS Please see initial psychiatric evaluation for details. PAST PSYCHIATRIC HISTORY Please see initial psychiatric evaluation for details. PAST MEDICAL HISTORY Please see initial psychiatric evaluation for details. HOSPITAL COURSE The patient was admitted to the Adult Chemical Dependency Unit, at [facility], and was oriented to the hospital, and routine p.r.n. medications were initiated, and he was started back on his home medications as he was just discharged from the hospital and did not need another detox; however, he was exhibiting some significant depressive symptoms and as such was started back on his Lamictal and BuSpar and Seroquel and was seen to be doing fairly well and was taking the medications regularly and was tolerating them fairly well, and able to show a decent therapeutic response, and as such it was decided that he would be discharged home to continue treatment on an outpatient basis. DISCHARGE DIAGNOSES Shorter I Bipolar disorder, most recent episode depressed, recurrent, moderate without psychotic features. Alcohol dependence, moderate. Shorter II Shorter III None. Shorter IV Moderate psychosocial stressors. Shorter V DISCHARGE MEDICATIONS 1. Lamictal 100 mg a day for bipolar 2. BuSpar 50 mg three times a day for depression 3. Seroquel 25 mg at bedtime for bipolar CONDITION AT DISCHARGE Stable. Unit #: [id number] #: [id number] Patient: ANIA GRIGSBY PROGNOSIS Fair. Dictated by... Sharri Sotelo M.D. IAA/quintero TD: 05/07/2017 05:18 JOB #: [id number] DISCHARGE SUMMARY Page 1 of 1 X Sharri Sotelo MD DISCHARGE SUMMARY
--- NOTE | ~2017-05-01 | PN ---
Unit #: [id number] #: [id number] Patient: ANIA GRIGSBY [id number] [facility] [address] [place] [address] [id number] I MR#: [id number] NAME: ANIA GRIGSBY. ROOM: P178 Age: 42 Sex: M Admission Date: 05/01/2017 : 1975 Attending Physician: Sharri Sotelo M.D. Admitting Physician: Sharri Sotelo M.D. Primary Care Physician: Arina ENNIS PROGRESS NOTES DATE May 05, 2017 DISCUSSION Mr. Grigsby is a 42-year-old white male, who was seen today and chart was reviewed and the case was discussed with the staff. He has been anxious, withdrawn, but has not shown any agitation, irritability, and has been reporting improvement in his depression and anxiety, and has been calm and cooperative with the treatment recommendations and he has been taking the medications and tolerating them fairly well. MENTAL STATUS EXAMINATION Middle-aged white male, who was casually dressed with fair personal hygiene and appears to be in no acute distress or discomfort. He was awake and alert with intact orientation. His mood is anxious with a congruent affect. He denies any suicidal or homicidal ideations, and also denies any auditory or visual hallucinations. His insight and judgment remain slightly impaired. TREATMENT PLAN 1. We will continue him on his current medications and treatment protocol, and will consider doing discharge planning tomorrow. 2. We will continue to followup. Dictated by... Kayla Denney/ingrid TD: 05/05/2017 10:31 JOB #: [id number] Unit #: [id number] #: [id number] Patient: ANIA GRIGSBY PROGRESS NOTES Page 1 of 1 X Sharri Sotelo MD PROGRESS NOTE
--- NOTE | ~2017-05-01 | PN ---
Unit #: [id number] #: [id number] Patient: ANIA GRIGSBY [id number] [facility] [address] [place] [address] [id number] I MR#: [id number] NAME: ANIA GRIGSBY. ROOM: P178 Age: 42 Sex: M Admission Date: 05/01/2017 : 1975 Attending Physician: Sharri Sotelo M.D. Admitting Physician: Sharri Sotelo M.D. Primary Care Physician: Arina GAN NOTES DATE 05/03/2017 DISCUSSION Mr. Grigsby is a 42-year-old, white male who was seen today and chart was reviewed and case was discussed with the staff. He has been complaining of persistent anxiety and Vistaril has , he appears to be doing better as he has been coming out of his room and socializing and laughing. He has been going to therapy groups and has been participating. MENTAL STATUS EXAM Middle-aged white male who was casually dressed with fair personal hygiene, appears to be in no acute distress or discomfort. He was awake and alert with intact orientation. His mood was anxious with congruent affect. suicidal or homicidal ideation. Also, denies any auditory or visual hallucinations. His insight and judgement remains slightly impaired. TREATMENT PLAN 1. We will continue him on his current medications and treatment protocol. We will monitor his response to the medication and make further adjustments as needed. 2. We will continue to follow up. Dictated by... Kayla Denney/josselyn TD: 05/04/2017 02:37 JOB #: [id number] Unit #: [id number] #: [id number] Patient: ANIA GRIGSBY PROGRESS NOTES Page 1 of 1 X Sharri Sotelo MD PROGRESS NOTE
--- NOTE | ~2017-05-01 | PA ---
Unit #: [id number] #: [id number] Patient: ANIA GRIGSBY [id number] [facility] [place] [address] [id number] I MR#: [id number] NAME: ANIA GRIGSBY. ROOM: P178 Age: 42 Sex: M Admission Date: 05/01/2017 : 1975 Date of Assessment: Attending Physician: Sharri Sotelo M.D. Admitting Physician: Sharri Sotelo M.D. Primary Care Physician: Arina Jaramillo PSYCHIATRIC ASSESSMENT DATE OF SERVICE 05/02/2017. IDENTIFYING DATA Mr. Mendoza is a 42-year-old, , white male, who is a resident of [place], [place], and was self-referred to the hospital as he was just discharged from my care a couple of days ago and initially brought himself to the assessment intoxicated and then, he wanted to leave and was allowed to sit down with a blood alcohol level dropped below the legal limit, he was allowed to go home with his family; however, he just went to drink more and then came back again and was exhibiting very manipulative behavior and this time he came back with a blood alcohol level of 0.239 and then he stated that he went to the [employer] station and bought two 24-ounce [employer] and drank them and just [facility] and it appears that he drank just so he can come back to the hospital intoxicated and reports that he is suicidal and that he has a plan to get a knife and cut on himself and was unable to contract for safety and was seen to be emotionally unstable and danger to self, therefore recommendation for inpatient level of care for safety and stabilization was made and the patient was transferred to us. SUBSTANCE ABUSE HISTORY The patient reports history of cannabis abuse, but alcohol has been his drug of choice and has been drinking since he was 13 years old and currently has been drinking 12 beers a day. PAST PSYCHIATRIC HISTORY The patient has had history of multiple inpatient psychiatric hospitalizations at [facility] and has been diagnosed and treated for bipolar disorder and has been on a combination of Lamictal, Seroquel and BuSpar, but did not get his prescription filled after leaving the hospital 3 days ago and as such, did not even follow up with outpatient treatment program and therefore has been decompensating. PAST MEDICAL HISTORY No acute or chronic medical illnesses. ALLERGIES No known medication allergies. PERSONAL AND SOCIAL HISTORY A 42-year-old white male, who reports that he is and unemployed Unit #: [id number] #: [id number] Patient: ANIA GRIGSBY and lives at home with his uncle and aunt and has fairly decent social support system. MENTAL STATUS EXAMINATION Middle-aged white male, who was casually dressed with fair personal hygiene, appears to be in no acute distress or discomfort. He was awake and alert on interaction with intact orientation. His mood was anxious and depressed with a congruent affect. His speech was slow and restricted in content. His thought processes were disorganized with some looseness of associations and suicidal ideations. His insight and judgment remain significantly impaired. DIAGNOSTIC IMPRESSION Psychiatric: Bipolar disorder, most recent episode depressed, recurrent, moderate, without psychotic features; alcohol dependence, moderate; cannabis abuse, moderate. Medical: None. Stressors: Moderate psychosocial stressors. TREATMENT PLAN 1. The patient has presented with a history of mood disorder and substance abuse and has been decompensating and will need inpatient hospitalization for safety and stabilization. We will start him back on his home medications. We will adjust the medications and monitor response. 2. Supportive therapy was provided to the patient. 3. Safe, structured, and nourishing environment will be reported. ESTIMATED LENGTH OF STAY 5 to 7 days. ABILITY TO HELP SELF Limited. WILLINGNESS TO HELP SELF The patient appears to be willing to help self. STRENGTHS 1. Communicative. 2. Cooperative. PROBLEMS 1. Chronic dysphoric symptoms. 2. Chronic chemical dependency. 3. Poor social support system. DISCHARGE CRITERIA This will be contingent upon the patient's ability to show resolution of his depression and anxiety and his ability to stay safe to himself, particularly after discharge from the hospital. Dictated by... Sharri Sotelo M.D. IAA/locl Unit #: [id number] #: [id number] Patient: ANIA GRIGSBY TD: 05/02/2017 07:38 JOB #: [id number] PSYCHIATRIC ASSESSMENT Page 1 of 1 X Sharri Sotelo MD PSYCHIATRIC ASSESSMENT
--- NOTE | ~2017-05-01 | HP ---
Unit #: [id number] #: [id number] Patient: JOSÉ GRIGSBY [id number] [facility] [address] [place] [address] [id number] I MR#: [id number] NAME: JOSÉ GRIGSBY. ROOM: P178 Age: 42 Sex: M Admission Date: 05/01/2017 : 1975 Attending Physician: Sharri Sotelo M.D. Admitting Physician: Sharri Sotelo M.D. Primary Care Physician: Arina Jaramillo HISTORY AND PHYSICAL José is a 42-year-old male admitted on 05/01/2017 to [facility] for detox from alcohol. He has multiple previous admissions for the same. Recently, he was admitted on 04/23/2017. I have reviewed the history and physical from that admission and there are no changes. Dictated by... Mirza Dodge/ayala TD: 05/02/2017 17:47 JOB #: [id number] HISTORY AND PHYSICAL Page 1 of 1 X YARELIS HARRIS APRN HISTORY AND PHYSICAL
--- NOTE | ~2017-05-01 | PN ---
Unit #: [id number] #: [id number] Patient: ANIA GRIGSBY [id number] [facility] [address] [place] [address] [id number] MR#: [id number] NAME: ANIA GRIGSBY. ROOM: P178 Age: 42 Sex: M Admission Date: 05/01/2017 : 1975 Attending Physician: Sharri Sotelo M.D. Admitting Physician: Sharri Sotelo M.D. Primary Care Physician: Arina ENNIS PROGRESS NOTES DATE 05/04/2017 he has been anxious, withdrawn and rather seclusive to himself. Meanwhile, he has been cooperative with treatment recommendations. He has been taking medications and tolerating them fairly well with no reported side effects. MENTAL STATUS EXAMINATION Middle-aged white male who was casually dressed with fair personal hygiene, appears to be in no acute distress or discomfort. He was awake and alert on interaction with intact orientation. His mood was anxious with a congruent affect. He denies any suicidal or homicidal ideations. His insight and judgement remains significantly impaired. TREATMENT PLAN 1. We will continue his current medications and treatment protocol. We will monitor his response to the medications and make further adjustments as needed. 2. We will continue to followup. Dictated by... Kayla Denney/josselyn TD: 05/04/2017 22:23 JOB #: [id number] Unit #: [id number] #: [id number] Patient: ANIA GRIGSBY PROGRESS NOTES Page 1 of 1 X Sharri Sotelo MD PROGRESS NOTE
[2017-05-03 12:59] LABS: AMPHETAMINE NEG (NEG); BARBITURATES NEG (NEG); BENZODIAZEPINES POS (NEG); COCAINE NEG (NEG); MARIJUANA POS (NEG); OPIATES NEG (NEG); TRICYCLIC ANTIDEPRESSANTS NEG (NEG); U METHADONE NEG (NEG)
== END 2017-05-06 11:45 | disposition home or self-care (01) | DRG 885 ==
LOC: P1E 19:42
PROVIDERS: Psychiatry & Neurology Psychiatry
DX: F31.32 Bipolar disorder, current episode depressed, moderate (principal); R45.851 Suicidal ideations; F10.20 Alcohol dependence, uncomplicated; F12.10 Cannabis abuse, uncomplicated; F41.9 Anxiety disorder, unspecified
CPT/HCPCS: 80307